=== PATIENT | female | born 1930 | race Caucasian/White ===

== ENCOUNTER 2019-03-05 11:15 | Outpatient (CLI) | payer MEDICARE | END 2019-03-05 11:16 | disposition home or self-care (01) | LOC: DI 11:15 | PROVIDERS: ATTEND Internal Medicine | DX: I34.0 Nonrheumatic mitral (valve) insufficiency (principal); I27.20 Pulmonary hypertension, unspecified | CPT/HCPCS: 93306 ==

== ENCOUNTER 2020-04-30 11:15 | Outpatient (CLI) | payer MEDICARE ==
[2020-04-30 15:32] LABS: BASOPHILS # (AUTO) 0.1 10^3/uL (0.0-0.1); BASOPHILS % (AUTO) 0.7 %; EOSINOPHILS # (AUTO) 0.6 10^3/uL (0.0-0.7); EOSINOPHILS % (AUTO) 5.5 %; HGB - HEMOGLOBIN 12.4 g/dL (12.0-16.0); LYMPHOCYTES # (AUTO) 3.5 10^3/uL (1.5-3.5); LYMPHOCYTES % (AUTO) 33.3 %; MEAN CORPUSCULAR HEMOGLOBIN 25.9 pg (27.0-31.0); MEAN CORPUSCULAR HGB CONC 31.2 g/dL (32.0-36.0); MEAN CORPUSCULAR VOLUME 82.9 fL (81.0-99.0); MEAN PLATELET VOLUME 9.8 fL (7.9-10.8); MONOCYTES # (AUTO) 0.7 10^3/uL (0.0-1.0); MONOCYTES % (AUTO) 6.6 %; NEUTROPHILS # (AUTO) 5.6 10^3/uL (1.5-6.6); NEUTROPHILS % (AUTO) 53.5 %; PLT - PLATELET COUNT 289 10^3/uL (130-450); RED BLOOD COUNT 4.79 10^6/uL (4.20-5.40); RED CELL DISTRIBUTION WIDTH 15.1 % (12.0-15.0); WHITE BLOOD COUNT 10.5 x10^3/uL (4.8-10.8)
[2020-04-30 15:44] LABS: ALBUMIN 4.5 g/dL (3.2-5.5); ALBUMIN/GLOBULIN RATIO 1.9 (1.0-2.2); ALKALINE PHOSPHATASE 47 IU/L (42-121); ALT ALANINE AMINOTRANSFERASE 14 IU/L (10-60); AST ASPARTATE AMINOTRANSFERASE 17 IU/L (10-42); BILIRUBIN,TOTAL 0.7 mg/dL (0.2-1.0); BUN - BLOOD UREA NITROGEN 17 mg/dL (6-20); CALCIUM 9.8 mg/dL (8.5-10.3); CARBON DIOXIDE - CO2 25 mmol/L (21-32); CHLORIDE 101 mmol/L (101-111); CHOL/HDL RATIO 4.9 (<4.4); CHOLESTEROL 235 mg/dL; CREATININE 0.9 mg/dL (0.4-1.0); GLUCOSE 109 mg/dL (70-100); HDL CHOLESTEROL 48 mg/dL; LDL CHOLESTEROL,CALCULATED 153 mg/dL; LDL/HDL RATIO 3.2 (<4.4); SODIUM 134 mmol/L (135-145); TOTAL PROTEIN 6.9 g/dL (6.7-8.2); VLDL CHOLESTEROL 34 mg/dL
[2020-04-30 16:27] LABS: HEMOGLOBIN A1C 0.51 g/dL; HEMOGLOBIN A1C % 5.7 % (4.6-6.2)
== END 2020-04-30 11:16 | disposition home or self-care (01) ==
LOC: LAB.S 11:15
PROVIDERS: ATTEND Nurse Practitioner Family
DX: E78.2 Mixed hyperlipidemia (principal); E03.9 Hypothyroidism, unspecified; I10 Essential (primary) hypertension; R73.01 Impaired fasting glucose
CPT/HCPCS: 36415; 80053; 80061; 83036; 83721; 84443; 85025

== ENCOUNTER 2020-06-22 10:10 | Outpatient (CLI) | payer MEDICARE | END 2020-06-22 10:11 | disposition home or self-care (01) | LOC: DI 10:10 | PROVIDERS: ATTEND Specialist | DX: I34.0 Nonrheumatic mitral (valve) insufficiency (principal); I34.1 Nonrheumatic mitral (valve) prolapse; I51.7 Cardiomegaly | CPT/HCPCS: 93306 ==

== ENCOUNTER 2021-07-07 08:51 | Outpatient (CLI) | payer MEDICARE | END 2021-07-07 08:52 | disposition critical access hospital (66) | LOC: EMS 08:51 | DX: S49.92XA Unspecified injury of left shoulder and upper arm, initial encounter (principal); W01.0XXA Fall on same level from slipping, tripping and stumbling without subsequent striking against object, initial encounter; Y92.002 Bathroom of unspecified non-institutional (private) residence as the place of occurrence of the external cause | CPT/HCPCS: A0425; A0429 ==

== ENCOUNTER 2021-07-07 09:26 | Emergency (ER) | payer MEDICARE ==
[2021-07-07] MEDS ORDERED: KETOROLAC 30 MG/ML VIAL IM STA (09:36)
--- NOTE | 2021-07-07 09:38 | ED Physician Documentation ---
PD HPI UPPER EXT INJURY - Stated complaint Stated Complaint: GLF - Chief complaint Chief Complaint: Ext Problem - History obtained from History obtained from: Patient, EMS - History of Present Illness Location: Left, Arm, Elbow Type of injury: Fall Where injury occurred: Home Timing - onset: Today Timing - duration: Minutes Timing - details: Abrupt onset, Still present Improved by: Rest, Immobilization Worsened by: Moving, Palpating Associated symptoms: Swelling. No: Weakness, Numbness, Discolored Contributing factors: No: Anticoagulated Similar symptoms before: Has not had sx before Recently seen: Not recently seen - Additonal information Additional information: 89-year-old female with a history of mitral valve insufficiency hypertension osteoporosis thyroid disorder was a pacemaker in place was taking shower this morning when she got out of the shower there was some water on the floor and she slipped on the tile landing on her left elbow. Review of Systems Constitutional: denies: Fever Ears: denies: Ear pain Nose: denies: Congestion Throat: denies: Sore throat Respiratory: denies: Cough GI: denies: Vomiting Musculoskeletal: reports: Extremity pain. denies: Neck pain, Back pain Neurologic: denies: Generalized weakness, Focal weakness, Numbness PD PAST MEDICAL HISTORY - Past Medical History Cardiovascular: Hypertension Respiratory: None Endocrine/Autoimmune: HyPOthyroidism GI: None : None HEENT: None Psych: None Musculoskeletal: None Derm: None - Past Surgical History General: Cholecystectomy Ortho: Knee replacement HEENT: Cataracts - Present Medications Home Medications: Ambulatory Orders Medication Instructions Recorded Confirmed Calcium [Calcio Carmen] 500 mg PO 07/30/13 02/11/15 Levothyroxine [Synthroid] 100 mcg PO QDAC 07/30/13 02/11/15 atenoloL [Tenormin] 100 mg PO DAILY 07/30/13 02/11/15 Aspirin [Elizabeth Chewable] 81 mg PO DAILY 02/11/15 02/11/15 C,E,Zinc,Copper 24/Om3/Lut/Dora 1 each PO DAILY 02/11/15 02/11/15 [Ocuvite Softgel] Cholecalciferol (Vitamin D3) 400 unit PO DAILY 02/11/15 02/11/15 [Vitamin D] Cinnamon Bark [Cinnamon] 1,500 mg PO DAILY 02/11/15 02/11/15 Flaxseed [Flaxseed Oil] 1,000 mg PO DAILY 02/11/15 02/11/15 Glucosamine/Methylsulfonylmeth [Sm 1 each PO DAILY 02/11/15 02/11/15 Glucosamine & MSM Tablet] Losartan/Hydrochlorothiazide 1 each ORAL DAILY 02/11/15 02/11/15 [Losartan-Hctz 100-25 mg Tab] amLODIPine [Norvasc] 10 mg PO ONCE 02/11/15 02/11/15 fentaNYL [Fentanyl 25mcg patch] 1 each TD Q3D PRN #4 patch 07/07/21 - Allergies Allergies/Adverse Reactions: Allergies Allergy/AdvReac Type Severity Reaction Status Date / Time ibuprofen Allergy Intermediate Nausea Verified 07/07/21 09:36 morphine Allergy Intermediate Hives Verified 07/07/21 09:36 oxycodone HCl * Allergy Intermediate Nausea Verified 07/07/21 09:36 [From Percocet] codeine [Codeine] AdvReac Intermediate Nausea Verified 07/07/21 09:36 Sulfa (Sulfonamide AdvReac Mild Rash Verified 07/07/21 09:36 Antibiotics) - Social History Does the pt smoke?: No Smoking Status: Never smoker Does the pt drink ETOH?: Yes Does the pt have substance abuse?: No - Immunizations Immunizations are current?: Yes PD ED PE NORMAL - Vitals Vital signs reviewed: Yes (hpyertensive ) - General General: Alert and oriented X 3, No acute distress, Well developed/nourished - HEENT HEENT: Atraumatic, PERRL, EOMI - Neck Neck: Supple, no meningeal sign, No bony TTP - Cardiac Cardiac: RRR, No murmur - Respiratory Respiratory: No respiratory distress, Clear bilaterally - Abdomen Abdomen: Soft, Non tender - Derm Derm: Normal color, Warm and dry, No rash - Extremities Extremities: Other (There is a fracture deformity to the left elbow above the elbow with marked swelling and distortion. There is no pain to palpation of the shoulder the actual elbow joint itself moves the range of motion both supination pronation and flexion extension with pain radiating to the site of the fracture.) - Neuro Neuro: Alert and oriented X 3, predatory animal exterminator 2-12 intact, No motor deficit, No sensory deficit, Normal speech Eye Opening: Spontaneous Motor: Obeys Commands Verbal: Oriented GCS Score: 15 - Psych Psych: Normal mood, Normal affect Results - Vitals Vitals: Vital Signs - 24 hr 07/07/21 07/07/21 07/07/21 09:25 10:00 12:00 Temperature 37 C Heart Rate 71 63 62 Respiratory 16 16 16 Rate Blood Pressure 147/64 H 118/64 106/60 O2 Saturation 99 96 97 Oxygen O2 Source Room air - Rads (name of study) Left elbow Radiology: Prelim report reviewed (Impression: Displaced, shortened, and angulated supracondylar fracture of the left humerus with a butterfly fragment), EMP read indepedently, See rad report Procedures - Splint (location) left elbow Splint applied by: Physician, Tech Type of splint: Fiberglass Other: Patient tolerated well, No complications, Neurovascular intact, Good alignment, Sling provided PD MEDICAL DECISION MAKING - ED course Complexity details: reviewed results, re-evaluated patient, considered differential, d/w patient, d/w sales consultant (Aneta recommends attempt at reduction with gravity, placement in posterior splint and sling and follow up in clinic for casting. ) ED course: 89-year-old female with a slip on wet floor has a distal humerus fracture with displacement. Dr. Cornell is consulted in the case. He reviews films and recommends placement into a posterior splint with traction and manipulation to attempt better position. The fracture does not cause undue pain to the patient and she is able to tolerate traction and manipulation while the splint is being applied after having received toradal. Her daughter calls and is concerned about pain control. The patient notes that she has a hard time with narcotic and prefers tylenol. The daughter indicates she is able to take fentanyl and we have prescribed the lowest dose patch. Departure - Departure Disposition: 01 Home, Self Care Clinical Impression: Fracture of distal humerus Qualifiers: Encounter type: initial encounter Fracture type: closed Fracture morphology: other fracture Fracture alignment: displaced Laterality: left Qualified Code(s): S42.492A - Other displaced fracture of lower end of left humerus, initial encounter for closed fracture Condition: Stable Instructions: ED Fx Elbow Follow-Up: PEDRO BENSON ARNP [Primary Care Provider] - Tyron Burgos MD [Provider Admit Priv/Credential] - Prescriptions: fentaNYL [Fentanyl 25mcg patch] 1 each TD Q3D PRN #4 patch PRN Reason: Pain Comments: A prescription for a fentanyl patch has been transmitted to [facility] in [place]. Discharge Date/Time: 07/07/21 12:30
--- NOTE | 2021-07-07 10:01 | XRAY Report ---
PROCEDURE: Humerus LT INDICATIONS: fall distal swelling tenderness TECHNIQUE: 3 views of the humerus were acquired. COMPARISON: None FINDINGS: Bones: 3 views of the left humerus demonstrate a left displaced, shortened, and angulated supracondyl ar fracture with a butterfly fragment seen medially. Degenerative changes of the left glenohumeral fiona int are present. Soft tissues: No suspicious soft tissue calcifications. Left chest wall pacer is seen. IMPRESSION: Displaced, shortened, and angulated supracondylar fracture of the left humerus with a bu tterfly fragment. Reviewed by: Antony García on 07/07/2021 10:00 AM PDT Approved by: Antony García on 07/07/2021 10:00 AM PDT Station ID: [id number]
[2021-07-07 12:57] VITALS: BP 106/60
== END 2021-07-07 12:30 | disposition home or self-care (01) ==
LOC: EDUNIT# → ED 09:26
DX: S42.412A Displaced simple supracondylar fracture without intercondylar fracture of left humerus, initial encounter for closed fracture (principal); W18.2XXA Fall in (into) shower or empty bathtub, initial encounter; Y93.F1 Activity, caregiving, bathing; Y92.002 Bathroom of unspecified non-institutional (private) residence as the place of occurrence of the external cause; I10 Essential (primary) hypertension
CPT/HCPCS: 29105

== ENCOUNTER 2021-07-14 10:22 | Outpatient (CLI) | payer MEDICARE ==
--- NOTE | 2021-07-14 15:23 | XRAY Report ---
PROCEDURE: Elbow 2 View LT INDICATIONS: S/P CAST TECHNIQUE: 2 views of the elbow were acquired. COMPARISON: X-ray left humerus, 2 views, 07/07/2021. X-ray left elbow, 2 views, 07/14/2021. FINDINGS: Bones: Comminuted fracture of the still humeral metaphysis with displacement. Alignment is improved a lthough significant displacement persists. No suspicious bony lesions. Soft tissues: No elbow joint effusion. No suspicious soft tissue calcifications. IMPRESSION: 1. After closed reduction of comminuted distal humeral fracture, there is improved alignment but sign ificant displacement persists. Reviewed by: Haja Horn MD on 07/14/2021 3:22 PM PDT Approved by: Haja Horn MD on 07/14/2021 3:22 PM PDT Station ID: [id number]
--- NOTE | 2021-07-14 15:42 | XRAY Report ---
PROCEDURE: Elbow 2 View LT INDICATIONS: PAIN IN LEFT ELBOW TECHNIQUE: 2 views of the elbow were acquired. COMPARISON: Humeral radiograph dated 07/07/2021 FINDINGS: Bones: Again noted is comminuted distal humeral shaft fracture with anterior and medial displacement at fracture site and up to 6.2 cm overlapping. No elbow dislocation is seen. No suspicious bony lesio ns. Soft tissues: Large joint effusion is noted. No suspicious soft tissue calcifications. IMPRESSION: Comminuted and displaced distal humeral shaft fracture now significantly changed from prior study. Reviewed by: Hernán Lyons MD on 07/14/2021 3:40 PM PDT Approved by: Hernán Lyons MD on 07/14/2021 3:40 PM PDT Station ID: [id number]
== END 2021-07-14 23:59 | disposition home or self-care (01) ==
LOC: DI.N 10:22
PROVIDERS: ATTEND Orthopaedic Surgery
DX: S42.352A Displaced comminuted fracture of shaft of humerus, left arm, initial encounter for closed fracture (principal)

== ENCOUNTER 2021-07-25 01:10 | Outpatient (CLI) | payer MEDICARE | END 2021-07-25 01:11 | disposition critical access hospital (66) | LOC: EMS 01:10 | DX: R07.89 Other chest pain (principal); R06.02 Shortness of breath | CPT/HCPCS: A0425; A0427 ==

== ENCOUNTER 2021-07-25 01:38 | Emergency (ER) | payer MEDICARE ==
--- NOTE | 2021-07-25 01:54 | ED Physician Documentation ---
PD HPI DYSPNEA - Stated complaint Stated Complaint: SOA, CHEST PX - Chief complaint Chief Complaint: Resp - History obtained from History obtained from: Patient - History of Present Illness Timing - onset: Today Timing - onset during: Rest Timing - duration: Minutes Timing - details: Abrupt onset, Still present (improved) Inciting event(s): Other (has recent fracture of the left distal humerus) Improved by: O2, BiPAP / CPAP, Nitro Worsened by: Exertion, Laying flat Associated symptoms: Chest pain / discomfort. No: Fever, Cough, Hemoptysis, Wheezing, Palpitations, Diaphoresis, Bilateral edema, Unilateral edema Similar symptoms before: Has not had sx before Recently seen: Emergency Dept - Additional information Additional information: 89-year-old female with demand pacemaker in place has developed acute shortness of breath this evening while watching television. She was attended to by medics who found the patient to be in extremis and with crackles in her lungs. She had elevated blood pressure she was given nitro and placed on CPAP in route to the hospital she is improved. She was responsive to positioning with lowering of her legs helping and raising her head. Medics were concerned about the need to intubate the patient in the field. She has recently been in to the ED for a fall on a wet floor. She has an unhealed fracture in her left elbow and is in a posterior splint and sling. She has been in to see her carbon electrodes supervisor to be cleared for surgery and her amlodipine has been stopped. Review of Systems Constitutional: denies: Fever Eyes: denies: Decreased vision Ears: denies: Ear pain Nose: denies: Congestion Throat: denies: Sore throat Cardiac: denies: Chest pain / pressure, Palpitations, Pedal edema, Calf pain Respiratory: reports: Dyspnea. denies: Cough, Hemoptysis, Wheezing GI: denies: Abdominal Pain, Nausea, Vomiting : denies: Dysuria, Frequency Skin: denies: Rash Musculoskeletal: reports: Extremity pain. denies: Neck pain, Back pain Neurologic: denies: Generalized weakness, Focal weakness, Numbness PD PAST MEDICAL HISTORY - Past Medical History Cardiovascular: Hypertension Respiratory: None Endocrine/Autoimmune: HyPOthyroidism GI: None : None HEENT: None Psych: None Musculoskeletal: None Derm: None - Past Surgical History Past Surgical History: Yes General: Cholecystectomy Ortho: Knee replacement Cardiovascular: Pacemaker HEENT: Cataracts - Present Medications Home Medications: Ambulatory Orders Medication Instructions Recorded Confirmed Calcium [Calcio Carmen] 500 mg PO 07/30/13 02/11/15 Levothyroxine [Synthroid] 100 mcg PO QDAC 07/30/13 02/11/15 atenoloL [Tenormin] 100 mg PO DAILY 07/30/13 02/11/15 Aspirin [Elizabeth Chewable] 81 mg PO DAILY 02/11/15 02/11/15 C,E,Zinc,Copper 24/Om3/Lut/Dora 1 each PO DAILY 02/11/15 02/11/15 [Ocuvite Softgel] Cholecalciferol (Vitamin D3) 400 unit PO DAILY 02/11/15 02/11/15 [Vitamin D] Cinnamon Bark [Cinnamon] 1,500 mg PO DAILY 02/11/15 02/11/15 Flaxseed [Flaxseed Oil] 1,000 mg PO DAILY 02/11/15 02/11/15 Glucosamine/Methylsulfonylmeth [Sm 1 each PO DAILY 02/11/15 02/11/15 Glucosamine & MSM Tablet] Losartan/Hydrochlorothiazide 1 each ORAL DAILY 02/11/15 02/11/15 [Losartan-Hctz 100-25 mg Tab] amLODIPine [Norvasc] 10 mg PO ONCE 02/11/15 02/11/15 fentaNYL [Fentanyl 25mcg patch] 1 each TD Q3D PRN #4 patch 07/07/21 - Allergies Allergies/Adverse Reactions: Allergies Allergy/AdvReac Type Severity Reaction Status Date / Time ibuprofen Allergy Intermediate Nausea Verified 07/25/21 01:48 morphine Allergy Intermediate Hives Verified 07/25/21 01:48 oxycodone HCl * Allergy Intermediate Nausea Verified 07/25/21 01:48 [From Percocet] codeine [Codeine] AdvReac Intermediate Nausea Verified 07/25/21 01:48 Sulfa (Sulfonamide AdvReac Mild Rash Verified 07/25/21 01:48 Antibiotics) - Social History Does the pt smoke?: No Smoking Status: Never smoker Does the pt drink ETOH?: Yes Does the pt have substance abuse?: No - Immunizations Immunizations are current?: Yes PD ED PE NORMAL - Vitals Vital signs reviewed: Yes (tachpneic) - General General: Alert and oriented X 3, Well developed/nourished, Other (CPAP in place not stuggling on arrival. ) - HEENT HEENT: Atraumatic, PERRL, EOMI - Neck Neck: Supple, no meningeal sign, No bony TTP - Cardiac Cardiac: RRR - Respiratory Respiratory: No respiratory distress, Other (diminshed breath sounds ) - Abdomen Abdomen: Soft, Non tender - Back Back: No CVA TTP, No spinal TTP - Derm Derm: Normal color, Warm and dry, No rash - Extremities Extremities: No deformity, No edema - Neuro Neuro: Alert and oriented X 3, accounting professional 2-12 intact, No motor deficit, No sensory deficit, Normal speech Eye Opening: Spontaneous Motor: Obeys Commands Verbal: Oriented GCS Score: 15 - Psych Psych: Normal mood, Normal affect Results - Vitals Vitals: Vital Signs - 24 hr 07/25/21 07/25/21 07/25/21 01:38 01:46 02:23 Temperature 36.7 C Heart Rate 98 89 87 Respiratory 26 H 22 22 Rate Blood Pressure 126/72 126/72 118/70 O2 Saturation 100 99 94 07/25/21 07/25/21 07/25/21 02:30 03:00 03:30 Temperature Heart Rate 80 75 78 Respiratory 25 H 18 22 Rate Blood Pressure 105/56 L 107/62 119/65 O2 Saturation 98 94 94 07/25/21 07/25/21 07/25/21 04:00 04:30 05:30 Temperature Heart Rate 86 75 84 Respiratory 22 19 21 Rate Blood Pressure 124/79 125/81 H 124/79 O2 Saturation 96 93 94 07/25/21 06:00 Temperature 36.8 C Heart Rate 85 Respiratory 24 Rate Blood Pressure 109/67 O2 Saturation 96 Oxygen O2 Source Room air - EKG (time done) 0145 Rate: Rate (enter#) (92) Rhythm: NSR Intervals: Prolonged MD, Prolonged QT Ischemia: Normal ST segments Other comments: Other comments (There is a lead placement error in V2 ) Compare to prior EKG: Old EKG unavailable Computer interpretation: Agree with computer 0546 Rate: Rate (enter#) (83) Intervals: Prolonged MD (borderline), Prolonged QT (borderline ) QRS: LVH Compare to prior EKG: Changed from prior EKG (SPT earlier today rate is decreased and prolongation of MD and QT are less. ) Computer interpretation: Agree with computer - Labs Labs: Laboratory Tests 07/25/21 07/25/21 07/25/21 02:09 02:09 02:09 WBC 14.3 H RBC 3.85 L Hgb 10.2 L Hct 33.1 L MCV 86.0 MCH 26.5 L MCHC 30.8 L RDW 16.6 H Plt Count 356 MPV 9.1 Neut # (Auto) 11.7 H Lymph # (Auto) 1.5 [place] # (Auto) 0.8 Eos # (Auto) 0.2 Baso # (Auto) 0.1 Absolute Nucleated RBC 0.00 Nucleated RBC % 0.0 Sodium 132 L Potassium 3.9 Chloride 99 L Carbon Dioxide 19 L Anion Gap 14.0 H BUN 18 Creatinine 0.9 Estimated GFR (MDRD) 59 L Glucose 214 H Lactic Acid Calcium 9.2 Total Bilirubin 0.9 AST 34 ALT 29 Alkaline Phosphatase 69 Troponin I High Sens 216.5 H* B-Natriuretic Peptide Total Protein 6.6 L Albumin 4.0 Globulin 2.6 Albumin/Globulin Ratio 1.5 Lipase 27 Nasal Adenovirus (PCR) Nasal B. parapertussis DNA (PCR) Nasal Coronavir 229E PCR Nasal Coronavir HKU1 PCR Nasal Coronavir NL63 PCR Nasal Coronavir OC43 PCR Nasal Enterovir/Rhinovir PCR Nasal Influenza B PCR Nasal Influenza A PCR Nasal Parainfluen 1 PCR Nasal Parainfluen 2 PCR Nasal Parainfluen 3 PCR Nasal Parainfluen 4 PCR Nasal RSV (PCR) Nasal B.pertussis DNA PCR Nasal C.pneumoniae (PCR) Ben Human Metapneumo PCR Nasal M.pneumoniae (PCR) Nasal SARS-CoV-2 (PCR) 07/25/21 07/25/21 07/25/21 02:09 02:09 03:55 WBC RBC Hgb Hct MCV MCH MCHC RDW Plt Count MPV Neut # (Auto) Lymph # (Auto) [place] # (Auto) Eos # (Auto) Baso # (Auto) Absolute Nucleated RBC Nucleated RBC % Sodium Potassium Chloride Carbon Dioxide Anion Gap BUN Creatinine Estimated GFR (MDRD) Glucose Lactic Acid 2.1 Calcium Total Bilirubin AST ALT Alkaline Phosphatase Troponin I High Sens B-Natriuretic Peptide 1085 H Total Protein Albumin Globulin Albumin/Globulin Ratio Lipase Nasal Adenovirus (PCR) NOT DETECTED Nasal B. parapertussis DNA (PCR) NOT DETECTED Nasal Coronavir 229E PCR NOT DETECTED Nasal Coronavir HKU1 PCR NOT DETECTED Nasal Coronavir NL63 PCR NOT DETECTED Nasal Coronavir OC43 PCR NOT DETECTED Nasal Enterovir/Rhinovir PCR NOT DETECTED Nasal Influenza B PCR NOT DETECTED Nasal Influenza A PCR NOT DETECTED Nasal Parainfluen 1 PCR NOT DETECTED Nasal Parainfluen 2 PCR NOT DETECTED Nasal Parainfluen 3 PCR NOT DETECTED Nasal Parainfluen 4 PCR NOT DETECTED Nasal RSV (PCR) NOT DETECTED Nasal B.pertussis DNA PCR NOT DETECTED Nasal C.pneumoniae (PCR) NOT DETECTED Ben Human Metapneumo PCR NOT DETECTED Nasal M.pneumoniae (PCR) NOT DETECTED Nasal SARS-CoV-2 (PCR) NOT DETECTED 07/25/21 03:59 WBC RBC Hgb Hct MCV MCH MCHC RDW Plt Count MPV Neut # (Auto) Lymph # (Auto) [place] # (Auto) Eos # (Auto) Baso # (Auto) Absolute Nucleated RBC Nucleated RBC % Sodium Potassium Chloride Carbon Dioxide Anion Gap BUN Creatinine Estimated GFR (MDRD) Glucose Lactic Acid Calcium Total Bilirubin AST ALT Alkaline Phosphatase Troponin I High Sens 1613.9 H* B-Natriuretic Peptide Total Protein Albumin Globulin Albumin/Globulin Ratio Lipase Nasal Adenovirus (PCR) Nasal B. parapertussis DNA (PCR) Nasal Coronavir 229E PCR Nasal Coronavir HKU1 PCR Nasal Coronavir NL63 PCR Nasal Coronavir OC43 PCR Nasal Enterovir/Rhinovir PCR Nasal Influenza B PCR Nasal Influenza A PCR Nasal Parainfluen 1 PCR Nasal Parainfluen 2 PCR Nasal Parainfluen 3 PCR Nasal Parainfluen 4 PCR Nasal RSV (PCR) Nasal B.pertussis DNA PCR Nasal C.pneumoniae (PCR) Ben Human Metapneumo PCR Nasal M.pneumoniae (PCR) Nasal SARS-CoV-2 (PCR) - Rads (name of study) chest Radiology: Prelim report reviewed (Impression: 1. New patchy infiltrates compared with previous study. 2. Other incidental findings as above.), EMP read indepedently, See rad report Procedures - IVC sono (time) 0143 Bedside IVC sono: IVC measures (cm) (2.03), IVC collapsed c insp (cm) (0.88), Eu volemia PD MEDICAL DECISION MAKING - ED course Complexity details: reviewed old records, reviewed results, re-evaluated patient, considered differential, d/w patient, d/w family, d/w analytical consultant (Shemar audio production engineer for [employer] recommends transfer for further evaluation of NSTEMI) ED course: 89-year-old female presents to the emergency department with acute flash pulmonary edema that was improved with use of CPAP and nitroglycerin. She has had a recent visit to her carbon electrodes supervisor in preparation for surgery and her amlodipine was discontinued. She had a blood pressure of 113/60. Her blood pressure in the field today was 159/96 and her O2 sat was 76% . She improved dramatically and we have been able to discontinue the CPAP and she has continued to improve. Her initial trop was elevated in the 200 range and her IVC was collapsing appropriately shortly after arrival. lasix was not indicated. She had further elevation in her trop to the 1600 range and she has been diagnosed with NSTEMI. I consulted cardiology at [place] and talked to Dr. Staton who recommended transfer. The patient was questioned about her willingness to participate in aggressive care and she indicates that she has had stents previously and would go through this again if it was recommended. She is started on heparin drip and she is on a waiting list at [facility] and [facility]. At shift change her care is turned over to Dr. Stuart with expectation of transfer to a center capable of evaluation and treatment. Departure - Departure Disposition: 02 Transfer Acute Care Hosp Clinical Impression: NSTEMI (non-ST elevated myocardial infarction), Flash pulmonary edema Condition: Stable
[2021-07-25 02:14] LABS: BASOPHILS # (AUTO) 0.1 10^3/uL (0.0-0.1); BASOPHILS % (AUTO) 0.4 %; EOSINOPHILS # (AUTO) 0.2 10^3/uL (0.0-0.7); EOSINOPHILS % (AUTO) 1.3 %; HCT - HEMATOCRIT 33.1 % (37.0-47.0); HGB - HEMOGLOBIN 10.2 g/dL (12.0-16.0); LYMPHOCYTES # (AUTO) 1.5 10^3/uL (1.5-3.5); LYMPHOCYTES % (AUTO) 10.4 %; MEAN CORPUSCULAR HEMOGLOBIN 26.5 pg (27.0-31.0); MEAN CORPUSCULAR HGB CONC 30.8 g/dL (32.0-36.0); MEAN PLATELET VOLUME 9.1 fL (7.9-10.8); MONOCYTES # (AUTO) 0.8 10^3/uL (0.0-1.0); MONOCYTES % (AUTO) 5.4 %; NEUTROPHILS # (AUTO) 11.7 10^3/uL (1.5-6.6); NEUTROPHILS % (AUTO) 81.9 %; PLT - PLATELET COUNT 356 10^3/uL (130-450); RED BLOOD COUNT 3.85 10^6/uL (4.20-5.40); RED CELL DISTRIBUTION WIDTH 16.6 % (12.0-15.0); WHITE BLOOD COUNT 14.3 x10^3/uL (4.8-10.8)
[2021-07-25 02:27] LABS: ALBUMIN/GLOBULIN RATIO 1.5 (1.0-2.2); BILIRUBIN,TOTAL 0.9 mg/dL (0.2-1.0); CALCIUM 9.2 mg/dL (8.5-10.3); CREATININE 0.9 mg/dL (0.4-1.0); POTASSIUM 3.9 mmol/L (3.5-5.0); TOTAL PROTEIN 6.6 g/dL (6.7-8.2)
[2021-07-25 05:02] LABS: B. PARAPERTUSSIS- RESP PCR PAN NOT DETECTED; B. PERTUSSIS- RESP PCR PANEL NOT DETECTED; C. PNEUMONIAE- RESP PCR PANEL NOT DETECTED; CORONAVIRUS 229E-RESP PCR NOT DETECTED; CORONAVIRUS HKU1-RESP PCR NOT DETECTED; CORONAVIRUS NL63-RESP PCR NOT DETECTED; CORONAVIRUS OC43-RESP PCR NOT DETECTED; HUMAN METAPNEUMOVIRUS NOT DETECTED; INFLUENZA A- RESP PCR PANEL NOT DETECTED; INFLUENZA B - RESP PCR PANEL NOT DETECTED; M. PNEUMONIAE- RESP PCR PANEL NOT DETECTED; PARAINFLUENZA VIRUS 1 NOT DETECTED; PARAINFLUENZA VIRUS 2 NOT DETECTED; PARAINFLUENZA VIRUS 3 NOT DETECTED; PARAINFLUENZA VIRUS 4 NOT DETECTED; RHINOVIRUS/ENTEROVIRUS NOT DETECTED; RSV- RESP PCR PANEL NOT DETECTED; SARS-CoV-2 -RESP PCR PANEL NOT DETECTED
[2021-07-25] MEDS ORDERED: HEPARIN 25000UNITS/500ML (D5W) 25,000 UNIT/500 ML BAG IV SCH (06:00)
--- NOTE | 2021-07-25 09:11 | XRAY Report ---
PROCEDURE: Chest 1 View X-Ray INDICATIONS: chest pain TECHNIQUE: One view of the chest was acquired. COMPARISON: CT chest 02/11/2015 FINDINGS: Surgical changes and devices: Pacemaker. Lungs and pleura: Patchy bilateral pulmonary opacities are present with blunting of the costophrenic angles. Mediastinum: Mediastinal contours appear normal. Heart size is enlarged. Bones and chest wall: No suspicious bony lesions. Overlying soft tissues appear unremarkable. IMPRESSION: Patchy bilateral pulmonary opacities most consistent with pneumonia. Trace effusions are present. The above findings are concordant with preliminary report. Reviewed by: Ashely Melo MD on 07/25/2021 9:10 AM PDT Approved by: Ashely Melo MD on 07/25/2021 9:10 AM PDT Station ID: [id number]
[2021-07-25 11:52] LABS: BILIRUBIN,URINE NEGATIVE (NEGATIVE); GLUCOSE, URINE (UA) NEGATIVE (NEGATIVE); KETONES,URINE (UA) NEGATIVE (NEGATIVE); LEUKOCYTE ESTERASE, URINE SMALL (NEGATIVE); NITRITE,URINE NEGATIVE (NEGATIVE); OCCULT BLOOD,URINE SMALL (NEGATIVE); PROTEIN,URINE NEGATIVE (NEGATIVE); UROBILINOGEN,URINE 0.2 (NORMAL) E.U./dL (NORMAL)
[2021-07-25] MEDS ORDERED: LEVOTHYROXINE 100 MCG TABLET PO STA (11:56)
[2021-07-25] MEDS ORDERED: ISOSORBIDE MONONITRATE ER 30 MG TABLET PO STA (11:58)
[2021-07-25 12:05] LABS: CLARITY,URINE CLEAR (CLEAR)
[2021-07-25 12:06] LABS: RBC,URINE 0-5 /HPF (0-5); SQUAMOUS EPITHELIAL CELL,UR RARE Squamous (<= Few)
[2021-07-25 12:08] LABS: BACTERIA,URINE None Seen /HPF (None Seen)
[2021-07-25 18:54] LABS: ALBUMIN 3.5 g/dL (3.2-5.5); ALBUMIN/GLOBULIN RATIO 1.5 (1.0-2.2); BILIRUBIN,TOTAL 0.9 mg/dL (0.2-1.0); CALCIUM 8.6 mg/dL (8.5-10.3); CREATININE 0.7 mg/dL (0.4-1.0); TOTAL PROTEIN 5.9 g/dL (6.7-8.2)
[2021-07-25 21:57] VITALS: BP 121/65
== END 2021-07-25 21:57 | disposition short-term general hospital (02) ==
LOC: SUPCPDRO 01:38 → ED 01:38
DX: J81.0 Acute pulmonary edema (principal); I21.4 Non-ST elevation (NSTEMI) myocardial infarction; I34.0 Nonrheumatic mitral (valve) insufficiency; S42.402D Unspecified fracture of lower end of left humerus, subsequent encounter for fracture with routine healing; W01.0XXD Fall on same level from slipping, tripping and stumbling without subsequent striking against object, subsequent encounter; Z20.822 Contact with and (suspected) exposure to COVID-19
CPT/HCPCS: 36415; 71045; 80053; 81001; 83605; 83690; 83880; 84484; 85025; 85730; 87086; 87631; 93005; 96365; 96366; 96376; 99285; A9270; 0202U; 81003; 85520

== ENCOUNTER 2021-07-25 21:57 | Outpatient (CLI) | payer MEDICARE | END 2021-07-25 21:58 | disposition short-term general hospital (02) | LOC: EMS 21:57 | PROVIDERS: ATTEND Emergency Medicine | DX: I21.4 Non-ST elevation (NSTEMI) myocardial infarction (principal); I34.0 Nonrheumatic mitral (valve) insufficiency | CPT/HCPCS: A0425; A0426 ==

== ENCOUNTER 2021-08-13 14:41 | Outpatient (CLI) | payer MEDICARE ==
--- NOTE | 2021-08-13 16:28 | Ultrasound Report ---
PROCEDURE: Duplex Ext Veins Right INDICATIONS: VENOUS THROMBOSIS the patient gives a history of known prior right popliteal vein throm bosis. TECHNIQUE: Real-time imaging, as well as color and pulse Doppler interrogation, were performed of the lower extr emity deep veins from the inguinal ligament to the popliteal fossa. COMPARISON: No prior images or reports are available at the time of this dictation. FINDINGS: Nonocclusive the venous anastomosis can be seen involving the popliteal vein. No additiona l right lower extremity deep venous thrombosis can be seen. 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 Note: Attempts were made to contact the primary care provider at the time of this study, but she was unavailable. Reviewed by: Yakov Seymour MD on 08/13/2021 3:26 PM DAGOBERTO Approved by: Yakov Seymour MD on 08/13/2021 3:26 PM DAGOBERTO Station ID: [id number]
== END 2021-08-13 14:42 | disposition home or self-care (01) ==
LOC: DI 14:41
PROVIDERS: ATTEND Physician Assistant
DX: I82.531 Chronic embolism and thrombosis of right popliteal vein (principal)

== ENCOUNTER 2021-08-19 01:41 | Outpatient (CLI) | payer MEDICARE | END 2021-08-19 01:42 | disposition critical access hospital (66) | LOC: EMS 01:41 | DX: R06.02 Shortness of breath (principal) | CPT/HCPCS: A0425; A0427 ==

== ENCOUNTER 2021-08-19 02:19 | Inpatient (IN) | payer MEDICARE ==
--- NOTE | 2021-08-19 03:09 | ED Physician Documentation ---
History of Present Illness - Stated complaint Stated Complaint: SOA - Chief complaint Chief Complaint: Resp - History obtained from History obtained from: Patient - Additonal information Additional information: 89yF with pmh chf/severe mitral insufficiency, s/p hospitalization at [facility] recently for 1 week p/w acute shortness of breath since evening timeyesterday. daughter is MARINE ELECTRONICS REPAIRER and has been treating her with SL nitro and lasix and called ems. patient feeling better but unable to speak 2/2 bipap. EMS reports patient is DNR/DNI. Review of Systems Unable to obtain: Other (unable to obtain 2/2 patient acuity) PD PAST MEDICAL HISTORY - Past Medical History Cardiovascular: Hypertension Respiratory: None Endocrine/Autoimmune: HyPOthyroidism GI: None : None HEENT: None Psych: None Musculoskeletal: None Derm: None - Past Surgical History Past Surgical History: Yes General: Cholecystectomy Ortho: Knee replacement Cardiovascular: Pacemaker HEENT: Cataracts - Present Medications Home Medications: Ambulatory Orders Medication Instructions Recorded Confirmed Calcium [Calcio [place]] 500 mg PO DAILY 07/30/13 07/25/21 Levothyroxine [Synthroid] 100 mcg PO QDAC 07/30/13 07/25/21 atenoloL [Tenormin] 100 mg PO DAILY 07/30/13 07/25/21 Aspirin [Elizabeth Chewable] 81 mg PO DAILY 02/11/15 07/25/21 C,E,Zinc,Copper 24/Om3/Lut/Dora 1 each PO DAILY 02/11/15 07/25/21 [Ocuvite Softgel] Cholecalciferol (Vitamin D3) 400 unit PO DAILY 02/11/15 07/25/21 [Vitamin D] Cinnamon Bark [Cinnamon] 1,500 mg PO DAILY 02/11/15 07/25/21 Flaxseed [Flaxseed Oil] 1,000 mg PO DAILY 02/11/15 07/25/21 Glucosamine/Methylsulfonylmeth [Sm 1 each PO DAILY 02/11/15 07/25/21 Glucosamine & MSM Tablet] amLODIPine [Norvasc] 10 mg PO ONCE 02/11/15 07/25/21 fentaNYL [Fentanyl 25mcg patch] 1 each TD Q3D PRN #4 patch 07/07/21 07/25/21 C,E,Zinc,Copper 11/Zvmbs6k/Lut 07/25/21 [Ocuvite Adult 50 Plus Softgel] Isosorbide Dinitrate 1 tab PO DAILY 07/25/21 07/25/21 - Allergies Allergies/Adverse Reactions: Allergies Allergy/AdvReac Type Severity Reaction Status Date / Time ibuprofen Allergy Intermediate Nausea Verified 07/25/21 01:48 morphine Allergy Intermediate Hives Verified 07/25/21 01:48 oxycodone HCl * Allergy Intermediate Nausea Verified 07/25/21 01:48 [From Percocet] losartan Allergy Anaphylaxis Verified 07/25/21 11:53 codeine [Codeine] AdvReac Intermediate Nausea Verified 07/25/21 01:48 Sulfa (Sulfonamide AdvReac Mild Rash Verified 07/25/21 01:48 Antibiotics) - Social History Does the pt smoke?: No Smoking Status: Never smoker Does the pt drink ETOH?: Yes Does the pt have substance abuse?: No - Immunizations Immunizations are current?: Yes PD ED PE NORMAL - Vitals Vital signs reviewed: Yes - General General: Other (mild respiratory distress) - HEENT HEENT: Atraumatic, PERRL, EOMI, Moist mucous membranes, Pharynx benign - Neck Neck: Supple, no meningeal sign - Cardiac Cardiac: RRR - Respiratory Respiratory: Other (BL rales, crackles) - Abdomen Abdomen: Non tender, Non distended - Back Back: No spinal TTP - Derm Derm: Normal color, Warm and dry - Extremities Extremities: No deformity, Other (BL LE edema) - Neuro Neuro: No motor deficit, No sensory deficit - Psych Psych: Normal mood, Normal affect Results - Vitals Vitals: Vital Signs - 24 hr 08/19/21 08/19/21 08/19/21 02:24 02:53 03:18 Temperature 37.0 C Heart Rate 86 71 82 Respiratory 26 H 19 27 H Rate Blood Pressure 127/67 116/56 L 115/61 O2 Saturation 99 99 98 08/19/21 08/19/21 08/19/21 03:20 04:05 04:20 Temperature Heart Rate 83 73 Respiratory 22 20 21 Rate Blood Pressure 107/65 116/56 L O2 Saturation 98 95 98 Oxygen O2 Source Nasal cannula Oxygen Flow Rate 2 - Labs Labs: Laboratory Tests 08/19/21 08/19/21 08/19/21 03:04 04:00 04:00 WBC 9.3 RBC 3.05 L Hgb 8.1 L Hct 26.4 L MCV 86.6 MCH 26.6 L MCHC 30.7 L RDW 17.8 H Plt Count 321 MPV 9.5 Neut # (Auto) 7.5 H Lymph # (Auto) 1.0 L Walker # (Auto) 0.7 Eos # (Auto) 0.1 Baso # (Auto) 0.0 Absolute Nucleated RBC 0.00 Nucleated RBC % 0.0 Sodium 133 L Potassium 3.9 Chloride 99 L Carbon Dioxide 22 Anion Gap 12.0 BUN 13 Creatinine 0.8 Estimated GFR (MDRD) 68 L Glucose 137 H Calcium 8.7 Iron TIBC % Saturation Transferrin Ferritin Total Bilirubin 0.7 AST 26 ALT 27 Alkaline Phosphatase 66 Troponin I High Sens B-Natriuretic Peptide Total Protein 5.8 L Albumin 3.6 Globulin 2.2 Albumin/Globulin Ratio 1.6 Lipase 29 Nasal Adenovirus (PCR) NOT DETECTED Nasal B. parapertussis DNA (PCR) NOT DETECTED Nasal Coronavir 229E PCR NOT DETECTED Nasal Coronavir HKU1 PCR NOT DETECTED Nasal Coronavir NL63 PCR NOT DETECTED Nasal Coronavir OC43 PCR NOT DETECTED Nasal Enterovir/Rhinovir PCR NOT DETECTED Nasal Influenza B PCR NOT DETECTED Nasal Influenza A PCR NOT DETECTED Nasal Parainfluen 1 PCR NOT DETECTED Nasal Parainfluen 2 PCR NOT DETECTED Nasal Parainfluen 3 PCR NOT DETECTED Nasal Parainfluen 4 PCR NOT DETECTED Nasal RSV (PCR) NOT DETECTED Nasal B.pertussis DNA PCR NOT DETECTED Nasal C.pneumoniae (PCR) NOT DETECTED Ben Human Metapneumo PCR NOT DETECTED Nasal M.pneumoniae (PCR) NOT DETECTED Nasal SARS-CoV-2 (PCR) NOT DETECTED 08/19/21 08/19/21 08/19/21 04:00 04:00 04:00 WBC RBC Hgb Hct MCV MCH MCHC RDW Plt Count MPV Neut # (Auto) Lymph # (Auto) Walker # (Auto) Eos # (Auto) Baso # (Auto) Absolute Nucleated RBC Nucleated RBC % Sodium Potassium Chloride Carbon Dioxide Anion Gap BUN Creatinine Estimated GFR (MDRD) Glucose Calcium Iron 26 L TIBC 333 % Saturation 8 L Transferrin 238 Ferritin Total Bilirubin AST ALT Alkaline Phosphatase Troponin I High Sens 397.2 H* B-Natriuretic Peptide 3338 H Total Protein Albumin Globulin Albumin/Globulin Ratio Lipase Nasal Adenovirus (PCR) Nasal B. parapertussis DNA (PCR) Nasal Coronavir 229E PCR Nasal Coronavir HKU1 PCR Nasal Coronavir NL63 PCR Nasal Coronavir OC43 PCR Nasal Enterovir/Rhinovir PCR Nasal Influenza B PCR Nasal Influenza A PCR Nasal Parainfluen 1 PCR Nasal Parainfluen 2 PCR Nasal Parainfluen 3 PCR Nasal Parainfluen 4 PCR Nasal RSV (PCR) Nasal B.pertussis DNA PCR Nasal C.pneumoniae (PCR) Ben Human Metapneumo PCR Nasal M.pneumoniae (PCR) Nasal SARS-CoV-2 (PCR) 08/19/21 04:00 WBC RBC Hgb Hct MCV MCH MCHC RDW Plt Count MPV Neut # (Auto) Lymph # (Auto) Walker # (Auto) Eos # (Auto) Baso # (Auto) Absolute Nucleated RBC Nucleated RBC % Sodium Potassium Chloride Carbon Dioxide Anion Gap BUN Creatinine Estimated GFR (MDRD) Glucose Calcium Iron TIBC % Saturation Transferrin Ferritin 117.0 Total Bilirubin AST ALT Alkaline Phosphatase Troponin I High Sens B-Natriuretic Peptide Total Protein Albumin Globulin Albumin/Globulin Ratio Lipase Nasal Adenovirus (PCR) Nasal B. parapertussis DNA (PCR) Nasal Coronavir 229E PCR Nasal Coronavir HKU1 PCR Nasal Coronavir NL63 PCR Nasal Coronavir OC43 PCR Nasal Enterovir/Rhinovir PCR Nasal Influenza B PCR Nasal Influenza A PCR Nasal Parainfluen 1 PCR Nasal Parainfluen 2 PCR Nasal Parainfluen 3 PCR Nasal Parainfluen 4 PCR Nasal RSV (PCR) Nasal B.pertussis DNA PCR Nasal C.pneumoniae (PCR) Ben Human Metapneumo PCR Nasal M.pneumoniae (PCR) Nasal SARS-CoV-2 (PCR) PD MEDICAL DECISION MAKING - ED course ED course: Patient was breathing heavily, daughter gave her 40mg PO lasix. Patient took one SL nitro / hour X 3. then daughter gave her 2 more. BP was high for her 150/85, she was short of breath. daughter called EMS. Patient is DNR/DNI, was recently admitted at [facility] (admitting supervisor Dr. Mcgarry, [place]). admitting supervisor Dr. Joyner at [facility]. Daughter would like patient to have full interventions including bloodwork, medications, admission. d/w Dr. Zafar for admission who requested we contact cardiology to confirm they are not able to take her for mitral clip. [facility] transfer center confirms there are 60 patients on waitlist and no beds available at present. Will admit here for CHF exacerbation management and diuresis. Patient improving and able to transition to nasal cannula from bipap. d/w Dr. Casper, admitting supervisor at [facility] who states if no beds are available at [facility] we should admit [facility] for now and re-consult inpatient. d/w Dr. Malave, admitting supervisor for [place] who recommends patient to be medically optimized at [facility], involving admitting supervisor at [facility] for coordination of care. d/w Dr. Lex Keen with [facility] who confirms he was told there would be a wait of at least 48 to 72 hours prior to considering patients at [facility] again. Recom mending against mitral clip from july 2021. Patient has previously said she would not want to consider mitral clip at this time to primary admitting supervisor at [facility] Dr. Joyner. He plans to fax over report to us. Departure - Departure Disposition: 66 [facility] DC/Xfer Clinical Impression: Acute exacerbation of CHF (congestive heart failure) Condition: Stable Discharge Date/Time: 08/19/21 06:15
[2021-08-19] MEDS ORDERED: FUROSEMIDE 20 MG/2 ML VIAL IVP STA (03:41)
[2021-08-19 04:12] LABS: B. PARAPERTUSSIS- RESP PCR PAN NOT DETECTED; B. PERTUSSIS- RESP PCR PANEL NOT DETECTED; C. PNEUMONIAE- RESP PCR PANEL NOT DETECTED; CORONAVIRUS 229E-RESP PCR NOT DETECTED; CORONAVIRUS HKU1-RESP PCR NOT DETECTED; CORONAVIRUS NL63-RESP PCR NOT DETECTED; CORONAVIRUS OC43-RESP PCR NOT DETECTED; HUMAN METAPNEUMOVIRUS NOT DETECTED; INFLUENZA A- RESP PCR PANEL NOT DETECTED; INFLUENZA B - RESP PCR PANEL NOT DETECTED; M. PNEUMONIAE- RESP PCR PANEL NOT DETECTED; PARAINFLUENZA VIRUS 1 NOT DETECTED; PARAINFLUENZA VIRUS 2 NOT DETECTED; PARAINFLUENZA VIRUS 3 NOT DETECTED; PARAINFLUENZA VIRUS 4 NOT DETECTED; RHINOVIRUS/ENTEROVIRUS NOT DETECTED; RSV- RESP PCR PANEL NOT DETECTED; SARS-CoV-2 -RESP PCR PANEL NOT DETECTED
[2021-08-19 04:19] LABS: BASOPHILS % (AUTO) 0.3 %; EOSINOPHILS # (AUTO) 0.1 10^3/uL (0.0-0.7); EOSINOPHILS % (AUTO) 0.5 %; HCT - HEMATOCRIT 26.4 % (37.0-47.0); HGB - HEMOGLOBIN 8.1 g/dL (12.0-16.0); LYMPHOCYTES % (AUTO) 11.1 %; MEAN CORPUSCULAR HEMOGLOBIN 26.6 pg (27.0-31.0); MEAN CORPUSCULAR HGB CONC 30.7 g/dL (32.0-36.0); MEAN CORPUSCULAR VOLUME 86.6 fL (81.0-99.0); MEAN PLATELET VOLUME 9.5 fL (7.9-10.8); MONOCYTES # (AUTO) 0.7 10^3/uL (0.0-1.0); MONOCYTES % (AUTO) 7.2 %; NEUTROPHILS # (AUTO) 7.5 10^3/uL (1.5-6.6); NEUTROPHILS % (AUTO) 80.6 %; PLT - PLATELET COUNT 321 10^3/uL (130-450); RED BLOOD COUNT 3.05 10^6/uL (4.20-5.40); RED CELL DISTRIBUTION WIDTH 17.8 % (12.0-15.0); WHITE BLOOD COUNT 9.3 x10^3/uL (4.8-10.8)
[2021-08-19 04:38] LABS: ALBUMIN 3.6 g/dL (3.2-5.5); ALBUMIN/GLOBULIN RATIO 1.6 (1.0-2.2); BILIRUBIN,TOTAL 0.7 mg/dL (0.2-1.0); CALCIUM 8.7 mg/dL (8.5-10.3); CREATININE 0.8 mg/dL (0.4-1.0); POTASSIUM 3.9 mmol/L (3.5-5.0); TOTAL PROTEIN 5.8 g/dL (6.7-8.2)
[2021-08-19] MEDS ORDERED: ONDANSETRON ODT 4 MG TABLET TL PRN (05:17)
[2021-08-19] MEDS ORDERED: SODIUM CHLORIDE FLUSH 0.9% 10 ML SYRINGE IVP PRN (05:17)
[2021-08-19] MEDS ORDERED: ONDANSETRON 4 MG/2 ML VIAL IVP PRN (05:17)
[2021-08-19] MEDS ORDERED: ACETAMINOPHEN 325 MG TABLET PO PRN (05:17)
[2021-08-19 05:47] LABS: % IRON SATURATION 8 % (20-50); IRON 26 ug/dL (28-170); TOTAL IRON BINDING CAPACITY 333 ug/dL (250-450); TRANSFERRIN 238 mg/dL (192-382)
[2021-08-19] MEDS ORDERED: NITROGLYCERIN SL 0.4 MG TABLET SL PRN ×2 (06:51→12:46)
--- NOTE | 2021-08-19 07:53 | XRAY Report ---
PROCEDURE: Chest 1 View X-Ray INDICATIONS: SOA TECHNIQUE: One view of the chest was acquired. COMPARISON: July 25, 2021 FINDINGS: SUPPORT DEVICES: Redemonstrated left cardiac device. LUNG/PLEURA: Prominence of the interstitium, likely reflecting pulmonary edema. Blunting of the costo phrenic sulci, compatible with pleural effusion/atelectasis. MEDIASTINUM: Prominence of the cardiac silhouette, partially related to technique. Redemonstrated sheila ral annulus calcification. Calcified atheromatous changes of the aorta. BONES/SOFT TISSUES: No acute abnormality. Moderate to advanced degenerative changes of the left gleno humeral articulation. IMPRESSION: 1.Pulmonary edema with small bilateral pleural effusions/atelectasis. Concordant interpretation with the pulmonary report. Reviewed by: Hakeem Christianson MD on 08/19/2021 7:51 AM PDT Approved by: Hakeem Christianson MD on 08/19/2021 7:51 AM PDT Station ID: [id number]
[2021-08-19] MEDS: SODIUM CHLORIDE FLUSH 0.9% 10 ML SYRINGE IVP SCH ×3 (08:57→23:34)
[2021-08-19] MEDS: FUROSEMIDE 40 MG/4 ML VIAL IVP SCH (08:57)
[2021-08-19] MEDS: ENOXAPARIN 40 MG/0.4 ML SYRINGE SUBQ SCH (08:57)
--- NOTE | 2021-08-19 11:27 | PHARMACY PROGRESS NOTE ---
- Best Possible Medication History Admit Date and Time: 08/19/21 0517 Processed by: Pharmacy Medication History completed: Yes Patient Interview: Pt unable to participate Secondary Source(s): Pharmacy records, Insurance records As the person ultimately responsible for medication therapy, providers are able to order a medication from an existing home medication list in [facility] via the "Reconcile Routine" prior to Confirmation of that medication by ict support technicians. Such practice is discouraged except when the physician, in their clinical judgment, deems that a medical need exists for a medication without regard to previous use.
[2021-08-19] MEDS ORDERED: amLODIPine 5 MG TABLET PO SCH (13:00)
[2021-08-19] MEDS: LEVOTHYROXINE 100 MCG TABLET PO SCH (13:06)
[2021-08-19] MEDS: ASPIRIN CHEW 81 MG TABLET PO SCH (13:06)
[2021-08-19] MEDS: ISOSORBIDE MONONITRATE ER 30 MG TABLET PO SCH (13:06)
--- NOTE | 2021-08-19 13:33 | HISTORY & PHYSICAL EXAMINATION ---
Chief Complaint - Chief Complaint Chief Complaint: Shortness of breath History of Present Illness - Admitted From Admitted From:: Emergency Department - History Obtained From Records Reviewed: [facility] History obtained from: Patient, Daughter, - History of Present Illness HPI Comment/Other: This pt is an 89yo Female with an extensive past medical hx of CHF/MR ,pacer, HTN, and DM that presented to the ER with acute SOB since yesterday evening. She is DNR/DNI. She is Covid negative. She was seen for a similiar episode 1 week ago for which she was hospitalized at [facility]. She was transported to our ER by EMS for her SOB after she had already taken SL nitro and lasix for which her daughter(ICU nurse [facility]) recommended. In the ED she was put on bipap. After she was stabilized with nitro and diuretics she was transitioned to 2L NC . Her troponin in ED was 397 and her BNP is 3338. Upon admission it was originally communicated by the daughter that she wanted to transfer her mom to [facility] where a bed was available. A discussion of having a mitral clip placed was explored in her medical records, but seemed to indicate that she did not want to get a mitral clip to relieve her MR. After talking with [facility] which was boarding 60 pts in the ER, it was confirmed that she was eligible for a bed, but not at the top of that list. Subsequently, the daughter was contacted and it was indicated that she was to see joint cutter bud Spence to have the procedure, but it had been delayed due to the patients desire to move to [place] which is happening this weekend during this event. Corner Cutter Machine Operator Dr. Spence was reached and he confirmed that this patient was to have a mitral clip placed. Plan was discussed with Dr. Mcgarry and Daughter. The patient is currently comfortable sitting in chair at bedside. It was also discovered that she has a broken arm for which she had surgery and it was successful. She is a fairly reliable historian. Her current PCP [place] is Dr. Read. She can answer questions appropriately and is quite knowledgeable about her condition. She states her usual baseline status is Dyspnea on exertion when walking more than just around the house. She does not have nocturnal dyspnea at baseline.She is not reporting any chest pain currently or any pain anywhere else for that matter. She is set on having the Mitral clip placed. The current plan was discussed with her and she was agreeable. Her vitals are currently stable. Hr74, BP 120/46, 20RR, 97% on RA. History - Past Medical History Cardiovascular: reports: Hypertension, [place] (Pt says the reason she was admitted to [facility] last week was for a prior [place]. Still have not confirmed this.), Valve disorder (Hx of mitral regurgitation.) Respiratory: reports: None Endocrine/Autoimmune: reports: Type 2 diabetes (According to EMR she has hx of DM. Patient denies this.), HyPOthyroidism GI: reports: None, Cholelithiasis : reports: None HEENT: reports: None, Other (Cataracts ) Psych: reports: None Musculoskeletal: reports: None, Osteoarthritis, Osteoporosis Derm: reports: None MRSA Hx?: No - Past Surgical History General: reports: Cholecystectomy Ortho: reports: Knee replacement Cardiovascular: reports: Pacemaker HEENT: reports: Cataracts (12/15/12) - Family & Social History Family History: Mother: , Father: Family History Comment/Other: She isn't 100% sure of her family past medical hx. Living arrangement: At home Living Situation: With spouse/s.o. (. Live on [place]. Moving to [place].) Social History Notes: Has 2 daughters and a son. 1 daughter who is largely her main point of contact is an CONSULTING SOFTWARE ENGINEER at [employer]. - Substance History Use: Uses substance without health or social issues: NONE, Alcohol - POLST Patient has POLST: Yes POLST Status: DNR (DNI) Meds/Allgy - Home Medications Home Medications: Ambulatory Orders Medication Instructions Recorded Confirmed Calcium [Calcio [place]] 500 mg PO DAILY 07/30/13 08/19/21 Levothyroxine [Synthroid] 100 mcg PO QDAC 07/30/13 08/19/21 Aspirin [Elizabeth Chew[place]] 81 mg PO DAILY 02/11/15 08/19/21 C,E,Zinc,Copper 24/Om3/Lut/Dora 1 each PO DAILY 02/11/15 08/19/21 [Ocuvite Softgel] Cholecalciferol (Vitamin D3) 400 unit PO DAILY 02/11/15 08/19/21 [Vitamin D] Cinnamon Bark [Cinnamon] 1,500 mg PO DAILY 02/11/15 08/19/21 Flaxseed [Flaxseed Oil] 1,000 mg PO DAILY 02/11/15 08/19/21 Glucosamine/Methylsulfonylmeth [Sm 1 each PO DAILY 02/11/15 08/19/21 Glucosamine & MSM Tablet] Amlodipine Besylate [Norvasc] 10 mg PO DAILY 08/19/21 08/19/21 Atenolol [Tenormin] 100 mg PO DAILY 08/19/21 08/19/21 Enoxaparin [Lovenox] 40 mg SUBQ Q24H 08/19/21 08/19/21 Furosemide [Lasix] 40 mg PO DAILY 08/19/21 08/19/21 Isosorbide Mononitrate ER [Imdur] 30 mg PO DAILY 08/19/21 08/19/21 Nitroglycerin [Nitrostat] 0.4 mg SL Q5MIN PRN 08/19/21 08/19/21 - Allergies Allergies/Adverse Reactions: Allergies Allergy/AdvReac Type Severity Reaction Status Date / Time ibuprofen Allergy Intermediate Nausea Verified 07/25/21 01:48 morphine Allergy Intermediate Hives Verified 07/25/21 01:48 oxycodone HCl * Allergy Intermediate Nausea Verified 07/25/21 01:48 [From Percocet] losartan Allergy Anaphylaxis Verified 07/25/21 11:53 codeine [Codeine] AdvReac Intermediate Nausea Verified 07/25/21 01:48 Sulfa (Sulfonamide AdvReac Mild Rash Verified 07/25/21 01:48 Antibiotics) Prior Level of Functionality: Currently living at home with . She usually can complete general daily activities, but has slowly declined over the past year. This has been further complicated by a broken arm that has left her more disabled. She has a signficant amount of exertional dyspnea which does limit her activity level. Cannot walk long distances due to this. Exam - Vital Signs Vital Signs: Vital Signs x48h Temp Pulse Pulse Pulse Resp BP BP 08/19/21 07:39 36.1 C L 77 22 120/53 L 08/19/21 06:16 36.1 C L 82 22 118/62 08/19/21 05:35 69 19 115/53 L Pulse Ox 08/19/21 07:39 100 08/19/21 06:16 100 08/19/21 05:35 - Physical Exam General Appearance: positive: Alert (answering questions appropriately.), Mild distress (barely speaking full sentences, but no signs of respiratory distress.) Eyes Bilateral: positive: PERRL, EOMI Neck: positive: No JVD, Trachea midline. negative: Lymphadenopathy (R), Lymphadenopathy (L) Respiratory: positive: Chest non-tender, No respiratory distress, Rales (Possible mild crackles heard on auscultation.), Other. negative: Wheezes, Rhonchi Cardiovascular: positive: Regular rate & rhythm, Systolic murmur (Blowing holosystolic murmur that radiated to that axilla) Peripheral Pulses: positive: 1+ Abdomen: positive: Non-tender, Nml bowel sounds Skin: positive: No rash, Warm, Dry Extremities: positive: Full ROM, Pedal edema (1+), Other (No sign of diabetic foot ulcers.). negative: Calf tenderness Neurologic/Psychiatric: positive: Oriented x3, CN's nml (2-12), Motor nml, Sensation nml Conclusion/Plan - Problem List (1) Acute exacerbation of CHF (congestive heart failure) Conclusion/Plan: This patient is suffering from an acute exacerbation secondary to mitral regurgitation. It is possible this was due to an [place] that she states she suffered last week, but this has not been confirmed or mentioned by her joint cutter. It was thought that was for flash pulmonary edema due to her HF. Pneumonia, PE, pneumothorax or other etiologies of this condition were considered. it is unlikely given her cardiac hx, clinical presentation, BNP of 3338, trop 397, Mitral regurgitation, and the relief of her current symptoms with lasix and nitro. She appears to primarily be exhibiting signs of left sided heart failure with the dyspnea being her primary issue which makes sense in relation to her mitral regurgitation. She does have some pedal edema, but no RUQ discomfort or JVD. Her current saturation is 97% on RA and does not appear to currently be in respiratory distress. Her lung sounds show minor crackles in the lower lobes, but nothing overtly obvious. She states she is feeling better. She is not having any chest pain at this time. Currently after discussion with her with her joint cutter Dr. Mcgarry it was decided that she should continue to receive diuretics and nitro to treat her c ondition. After discharge she will have follow up appoint with joint cutter and have a mitral clip placed as soon as this Sunday. Will continue to monitor this condition and continue with this treatment plan. (2) Flash pulmonary edema Conclusion/Plan: The episode of flash pulmonary edema that she presented with in ED due to her HF has stabilized upon admission. She is saturating at 97% on room air and has only mild crackles upon auscultation. She can converse and can make it through a full sentence without taking a breath. However, she is still has some dyspnea. Furthermore she still has a significant level dyspnea upon exertion as well. Will continue to treat her CHF/MR and monitor her oxygenation status. She will need to be reevaluated and road tested prior discharge. I suspect that her symptoms will continue to improve. (3) Fracture of distal humerus Conclusion/Plan: Left arm is currently immobilized in splint and sling. Circulation, motor, and sensation are intact. She does not complain of any pain at this time. No further treatment indicated at this time. Qualifiers: Encounter type: initial encounter Fracture type: closed Fracture morphology: other fracture Fracture alignment: displaced Laterality: left Qualified Code(s): S42.492A - Other displaced fracture of lower end of left humerus, initial encounter for closed fracture - Lab Results Fish Bones: 08/19/21 04:00 08/19/21 04:00 Other Lab Results: WBC 9.3 x10^3/uL (4.8-10.8) 08/19/21 04:00 RBC 3.05 10^6/uL (4.20-5.40) L 08/19/21 04:00 Hgb 8.1 g/dL (12.0-16.0) L 08/19/21 04:00 Hct 26.4 % (37.0-47.0) L 08/19/21 04:00 MCV 86.6 fL (81.0-99.0) 08/19/21 04:00 MCH 26.6 pg (27.0-31.0) L 08/19/21 04:00 MCHC 30.7 g/dL (32.0-36.0) L 08/19/21 04:00 RDW 17.8 % (12.0-15.0) H 08/19/21 04:00 Plt Count 321 10^3/uL (130-450) 08/19/21 04:00 MPV 9.5 fL (7.9-10.8) 08/19/21 04:00 Neut # (Auto) 7.5 10^3/uL (1.5-6.6) H 08/19/21 04:00 Lymph # (Auto) 1.0 10^3/uL (1.5-3.5) L 08/19/21 04:00 Wy[place] # (Auto) 0.7 10^3/uL (0.0-1.0) 08/19/21 04:00 Eos # (Auto) 0.1 10^3/uL (0.0-0.7) 08/19/21 04:00 Baso # (Auto) 0.0 10^3/uL (0.0-0.1) 08/19/21 04:00 Absolute Nucleated RBC 0.00 x10^3/uL 08/19/21 04:00 Nucleated RBC % 0.0 /100WBC 08/19/21 04:00 Sodium 133 mmol/L (135-145) L 08/19/21 04:00 Potassium 3.9 mmol/L (3.5-5.0) 08/19/21 04:00 Chloride 99 mmol/L (101-111) L 08/19/21 04:00 Carbon Dioxide 22 mmol/L (21-32) 08/19/21 04:00 Anion Gap 12.0 (6-13) 08/19/21 04:00 BUN 13 mg/dL (6-20) 08/19/21 04:00 Creatinine 0.8 mg/dL (0.4-1.0) 08/19/21 04:00 Estimated GFR (MDRD) 68 (>89) L 08/19/21 04:00 Glucose 137 mg/dL (70-100) H 08/19/21 04:00 Calcium 8.7 mg/dL (8.5-10.3) 08/19/21 04:00 Iron 26 ug/dL (28-170) L 08/19/21 04:00 TIBC 333 ug/dL (250-450) 08/19/21 04:00 % Saturation 8 % (20-50) L 08/19/21 04:00 Transferrin 238 mg/dL (192-382) 08/19/21 04:00 Ferritin 117.0 ng/mL (11.0-306.8) 08/19/21 04:00 Total Bilirubin 0.7 mg/dL (0.2-1.0) 08/19/21 04:00 AST 26 IU/L (10-42) 08/19/21 04:00 ALT 27 IU/L (10-60) 08/19/21 04:00 Alkaline Phosphatase 66 IU/L (42-121) 08/19/21 04:00 Troponin I High Sens 397.2 ng/L (2.3-14.8) H* 08/19/21 04:00 B-Natriuretic Peptide 3338 pg/mL (5-100) H 08/19/21 04:00 Total Protein 5.8 g/dL (6.7-8.2) L 08/19/21 04:00 Albumin 3.6 g/dL (3.2-5.5) 08/19/21 04:00 Globulin 2.2 g/dL (2.1-4.2) 08/19/21 04:00 Albumin/Globulin Ratio 1.6 (1.0-2.2) 08/19/21 04:00 Lipase 29 U/L (22-51) 08/19/21 04:00 Nasal Adenovirus (PCR) NOT DETECTED 08/19/21 03:04 Nasal B. parapertussis DNA (PCR) NOT DETECTED 08/19/21 03:04 Nasal Coronavir 229E PCR NOT DETECTED 08/19/21 03:04 Nasal Coronavir HKU1 PCR NOT DETECTED 08/19/21 03:04 Nasal Coronavir NL63 PCR NOT DETECTED 08/19/21 03:04 Nasal Coronavir OC43 PCR NOT DETECTED 08/19/21 03:04 Nasal Enterovir/Rhinovir PCR NOT DETECTED 08/19/21 03:04 Nasal Influenza B PCR NOT DETECTED 08/19/21 03:04 Nasal Influenza A PCR NOT DETECTED 08/19/21 03:04 Nasal Parainfluen 1 PCR NOT DETECTED 08/19/21 03:04 Nasal Parainfluen 2 PCR NOT DETECTED 08/19/21 03:04 Nasal Parainfluen 3 PCR NOT DETECTED 08/19/21 03:04 Nasal Parainfluen 4 PCR NOT DETECTED 08/19/21 03:04 Nasal RSV (PCR) NOT DETECTED 08/19/21 03:04 Nasal B.pertussis DNA PCR NOT DETECTED 08/19/21 03:04 Nasal C.pneumoniae (PCR) NOT DETECTED 08/19/21 03:04 Ben Human Metapneumo PCR NOT DETECTED 08/19/21 03:04 Nasal M.pneumoniae (PCR) NOT DETECTED 08/19/21 03:04 Nasal SARS-CoV-2 (PCR) NOT DETECTED 08/19/21 03:04
[2021-08-20] MEDS: LEVOTHYROXINE 100 MCG TABLET PO SCH (06:22)
[2021-08-20 07:31] LABS: BASOPHILS % (AUTO) 0.6 %; EOSINOPHILS # (AUTO) 0.2 10^3/uL (0.0-0.7); EOSINOPHILS % (AUTO) 3.4 %; HCT - HEMATOCRIT 28.4 % (37.0-47.0); HGB - HEMOGLOBIN 8.8 g/dL (12.0-16.0); LYMPHOCYTES # (AUTO) 1.3 10^3/uL (1.5-3.5); LYMPHOCYTES % (AUTO) 19.5 %; MEAN CORPUSCULAR HEMOGLOBIN 26.4 pg (27.0-31.0); MEAN CORPUSCULAR VOLUME 85.3 fL (81.0-99.0); MEAN PLATELET VOLUME 9.1 fL (7.9-10.8); MONOCYTES # (AUTO) 0.6 10^3/uL (0.0-1.0); MONOCYTES % (AUTO) 9.3 %; NEUTROPHILS # (AUTO) 4.5 10^3/uL (1.5-6.6); NEUTROPHILS % (AUTO) 66.9 %; PLT - PLATELET COUNT 285 10^3/uL (130-450); RED BLOOD COUNT 3.33 10^6/uL (4.20-5.40); RED CELL DISTRIBUTION WIDTH 17.8 % (12.0-15.0); WHITE BLOOD COUNT 6.8 x10^3/uL (4.8-10.8)
[2021-08-20 07:40] LABS: CALCIUM 8.8 mg/dL (8.5-10.3); CREATININE 0.6 mg/dL (0.4-1.0); POTASSIUM 3.5 mmol/L (3.5-5.0)
[2021-08-20] MEDS: ASPIRIN CHEW 81 MG TABLET PO SCH (09:20)
[2021-08-20] MEDS: FUROSEMIDE 40 MG/4 ML VIAL IVP SCH (09:20)
[2021-08-20] MEDS: ENOXAPARIN 40 MG/0.4 ML SYRINGE SUBQ SCH (09:21)
[2021-08-20] MEDS: SODIUM CHLORIDE FLUSH 0.9% 10 ML SYRINGE IVP SCH ×2 (09:22→22:10)
[2021-08-20] MEDS: ISOSORBIDE MONONITRATE ER 30 MG TABLET PO SCH (09:31)
[2021-08-20] MEDS: amLODIPine 5 MG TABLET PO SCH (09:31)
--- NOTE | 2021-08-20 11:50 | PROVIDER PROGRESS NOTE ---
Subjective - Prog Note Date Prog Note Date: 08/20/21 Prog Note Time: 11:43 - Subjective Pt reports feeling: No change Subjective: she feels as if she has continued giordano with easy activity. eating and talking make her sob. Mild orthopnea. No leg edema. She really can't say if this is baseline for her now or if she is worse than usual. Current Medications - Current Medications Current Medications: Active Medications Acetaminophen (Acetaminophen 325 Mg Tablet) 650 mg PO Q4HR PRN PRN Reason: Pain 1 to 4 Amlodipine Besylate (Amlodipine 5 Mg Tablet) 10 mg PO DAILY [facility] Last Admin: 08/20/21 09:31 Dose: 10 mg Documented by: Aspirin (Aspirin Chew 81 Mg Tablet) 81 mg PO DAILY [facility] Last Admin: 08/20/21 09:20 Dose: 81 mg Documented by: Enoxaparin Sodium (Enoxaparin 40 Mg/0.4 Ml Syringe) 40 mg SUBQ DAILY [facility] Last Admin: 08/20/21 09:21 Dose: 40 mg Documented by: Furosemide (Furosemide 40 Mg/4 Ml Vial) 40 mg IVP DAILY [facility] Last Admin: 08/20/21 09:20 Dose: 40 mg Documented by: Isosorbide Mononitrate (Isosorbide Mononitrate Er 30 Mg Tablet) 30 mg PO DAILY [facility] Last Admin: 08/20/21 09:31 Dose: 30 mg Documented by: Levothyroxine Sodium (Levothyroxine 100 Mcg Tablet) 100 mcg PO QDAC [facility] Last Admin: 08/20/21 06:22 Dose: 100 mcg Documented by: Nitroglycerin (Nitroglycerin Sl 0.4 Mg Tablet) 0.4 mg SL Q5MIN PRN PRN Reason: Chest Pain Last Admin: 08/19/21 12:34 Dose: 0.4 mg Documented by: Ondansetron HCl (Ondansetron Odt 4 Mg Tablet) 4 mg TL Q6HR PRN PRN Reason: Nausea / Vomiting Ondansetron HCl (Ondansetron 4 Mg/2 Ml Vial) 4 mg IVP Q6HR PRN PRN Reason: Nausea / Vomiting Sodium Chloride (Sodium Chloride Flush 0.9% 10 Ml Syringe) 10 ml IVP PRN PRN PRN Reason: NEEDED PER PROVIDER ORDERS Sodium Chloride (Sodium Chloride Flush 0.9% 10 Ml Syringe) 10 ml IVP 0100,0900,1700 K[facility] Last Admin: 08/20/21 09:22 Dose: 10 ml Documented by: Calcium [Calcio [place]] 500 mg PO DAILY 07/30/13 Levothyroxine [Synthroid] 100 mcg PO QDAC 07/30/13 Aspirin [Elizabeth Chewable] 81 mg PO DAILY 02/11/15 C,E,Zinc,Copper 24/Om3/Lut/Dora [Ocuvite Softgel] 1 each PO DAILY 02/11/15 Cholecalciferol (Vitamin D3) [Vitamin D] 400 unit PO DAILY 02/11/15 Cinnamon Bark [Cinnamon] 1,500 mg PO DAILY 02/11/15 Flaxseed [Flaxseed Oil] 1,000 mg PO DAILY 02/11/15 Glucosamine/Methylsulfonylmeth [Sm Glucosamine & MSM Tablet] 1 each PO DAILY 02/11/15 Amlodipine Besylate [Norvasc] 10 mg PO DAILY 08/19/21 Atenolol [Tenormin] 100 mg PO DAILY 08/19/21 Enoxaparin [Lovenox] 40 mg SUBQ Q24H 08/19/21 Furosemide [Lasix] 40 mg PO DAILY 08/19/21 Isosorbide Mononitrate ER [Imdur] 30 mg PO DAILY 08/19/21 Nitroglycerin [Nitrostat] 0.4 mg SL Q5MIN PRN 08/19/21 Objective - Vital Signs/Intake & Output Reviewed Vital Signs: Yes Vital Signs: Vital Signs x48h Temp Pulse Resp BP Pulse Ox 08/20/21 11:18 36.1 C L 78 20 120/47 L 98 08/20/21 07:50 36.4 C L 87 18 128/53 L 96 08/20/21 05:00 36.2 C L 90 20 130/60 98 Intake & Output: Intake & Output 08/17/21 08/18/21 08/19/21 08/20/21 23:59 23:59 23:59 23:59 Intake Total 980 500 Balance 980 500 - Objective General Appearance: positive: Alert, Mild distress (sitting up in bed and increases her resp alice when speaking to me but able to complete sentences) Eyes Bilateral: positive: PERRL, EOMI ENT: positive: No signs of dehydration Neck: positive: No JVD. negative: Stiff neck Respiratory: positive: Other (mild resp distress). negative: Wheezes, Rales, Rhonchi Cardiovascular: positive: Regular rate & rhythm, Systolic murmur (loudest at axilla). negative: Gallop/S4, Friction rub Abdomen: positive: Non-tender, No organomegaly, Nml bowel sounds, No distention Skin: positive: Warm, Dry Extremities: positive: Full ROM, No pedal edema, Other (left arm in shoulder to forearm cast. fingers on that hand sausages but not tight and can flex write and fingers.) Neurologic/Psychiatric: positive: Oriented x3, CN's nml (2-12), Motor nml - Lab Results Fish Bones: 08/20/21 07:25 08/20/21 07:25 Other Labs: Lab Results x24hrs 08/20/21 08/20/21 Range/Units 07:25 07:25 WBC 6.8 (4.8-10.8) x10^3/uL RBC 3.33 L (4.20-5.40) 10^6/uL Hgb 8.8 L (12.0-16.0) g/dL Hct 28.4 L (37.0-47.0) % MCV 85.3 (81.0-99.0) fL MCH 26.4 L (27.0-31.0) pg MCHC 31.0 L (32.0-36.0) g/dL RDW 17.8 H (12.0-15.0) % Plt Count 285 (130-450) 10^3/uL MPV 9.1 (7.9-10.8) fL Neut # (Auto) 4.5 (1.5-6.6) 10^3/uL Lymph # (Auto) 1.3 L (1.5-3.5) 10^3/uL [place] # (Auto) 0.6 (0.0-1.0) 10^3/uL Eos # (Auto) 0.2 (0.0-0.7) 10^3/uL Baso # (Auto) 0.0 (0.0-0.1) 10^3/uL Absolute Nucleated RBC 0.00 x10^3/uL Nucleated RBC % 0.0 /100WBC Sodium 132 L (135-145) mmol/L Potassium 3.5 (3.5-5.0) mmol/L Chloride 97 L (101-111) mmol/L Carbon Dioxide 24 (21-32) mmol/L Anion Gap 11.0 (6-13) BUN 11 (6-20) mg/dL Creatinine 0.6 (0.4-1.0) mg/dL Estimated GFR (MDRD) 94 (>89) Glucose 121 H (70-100) mg/dL Calcium 8.8 (8.5-10.3) mg/dL Magnesium 2.0 (1.7-2.8) mg/dL Assessment/Plan - Problem List (1) Normocytic anemia due to blood loss Impression: she's had recent arm surgery and isn't eating well. Check iron studies and start iron and vitamin C. Check FOBT. (2) Acute exacerbation of CHF (congestive heart failure) Impression: This patient is suffering from an acute exacerbation secondary to mitral regurgitation. It is possible this was due to an VA that she states she suffered last week, but this has not been confirmed or mentioned by her archeologist classical. She has flash pulmonary edema due to MV regurg and CHF with that admission according to Dr. Mcgarry. In describing this admission Dr. Mcgarry feels it is the same presentation. Dr. Mcgarry advised that she should continue to receive diuretics and nitro to treat her condition. Pneumonia, PE, pneumothorax or other etiologies of this condition were considered. it is unlikely those are the cause, given her cardiac hx, clinical presentation, BNP of 3338, trop 397, hx of mitral regurgitation, and the relief of her current symptoms with lasix and nitro. She appears to primarily be exhibiting signs of left sided heart failure with the dyspnea being her primary issue which makes sense in relation to her mitral regurgitation. She did have some pedal edema, but no RUQ discomfort or JVD. Her saturation was 97% on RA and was not in respiratory distress. Her lung sounds had minor crackles in the lower lobes, but nothing overtly obvious. She continues to have baseline giordano as manifested by increased respiratory rate when she speaks or eats but she really can't tell me if that is baseline. She thinks she is "fine" for her problems right now. She is not having any chest pain at this time. No recorded output by RN or aides so not able to assess I/O Have asked RN to please start recording. Continue w Lasix IV today. (2) Flash pulmonary edema Conclusion/Plan: The episode of flash pulmonary edema that she presented with in ED due to her HF has stabilized upon admission. She is saturating at 97% on room air and has only mild crackles upon auscultation. She can converse and can make it through a full sentence without taking a breath. However, she is still has some dyspnea. Furthermore she still has a significant level dyspnea upon exertion as well. Will continue to treat her CHF/MR and monitor her oxygenation status. She will need to be reevaluated and road tested prior discharge. I suspect that her symptoms will continue to improve. (3) Fracture of distal humerus Conclusion/Plan: Left arm is currently immobilized in splint and sling. Circulation, motor, and sensation are intact. She does not complain of any pain at this time. No further treatment indicated at this time. Qualifiers: Encounter type: initial encounter Fracture type: closed Fracture morphology: other fracture Fracture alignment: displaced Laterality: left Qualified Code(s): S42.492A - Other displaced fracture of lower end of left humerus, initial encounter for closed fracture
[2021-08-20] MEDS ORDERED: ASCORBIC ACID 500 MG TABLET PO SCH (13:00)
[2021-08-20] MEDS: ASCORBIC ACID 500 MG TABLET PO SCH (14:48)
[2021-08-20] MEDS: FERROUS GLUCONATE 324 MG TABLET PO SCH (14:48)
[2021-08-20 20:23] LABS: FECAL OCCULT BLOOD (FIT) NEGATIVE (NEGATIVE)
[2021-08-21] MEDS: SODIUM CHLORIDE FLUSH 0.9% 10 ML SYRINGE IVP SCH ×2 (00:32→10:19)
[2021-08-21] MEDS: LEVOTHYROXINE 100 MCG TABLET PO SCH (06:08)
[2021-08-21 07:21] LABS: BASOPHILS % (AUTO) 0.6 %; EOSINOPHILS # (AUTO) 0.3 10^3/uL (0.0-0.7); EOSINOPHILS % (AUTO) 4.8 %; HCT - HEMATOCRIT 31.1 % (37.0-47.0); HGB - HEMOGLOBIN 9.4 g/dL (12.0-16.0); LYMPHOCYTES # (AUTO) 1.7 10^3/uL (1.5-3.5); LYMPHOCYTES % (AUTO) 27.8 %; MEAN CORPUSCULAR HGB CONC 30.2 g/dL (32.0-36.0); MEAN CORPUSCULAR VOLUME 86.1 fL (81.0-99.0); MEAN PLATELET VOLUME 9.8 fL (7.9-10.8); MONOCYTES # (AUTO) 0.6 10^3/uL (0.0-1.0); MONOCYTES % (AUTO) 8.8 %; NEUTROPHILS # (AUTO) 3.6 10^3/uL (1.5-6.6); NEUTROPHILS % (AUTO) 57.5 %; PLT - PLATELET COUNT 295 10^3/uL (130-450); RED BLOOD COUNT 3.61 10^6/uL (4.20-5.40); RED CELL DISTRIBUTION WIDTH 17.7 % (12.0-15.0); WHITE BLOOD COUNT 6.3 x10^3/uL (4.8-10.8)
[2021-08-21 07:25] LABS: MAGNESIUM 2.1 mg/dL (1.7-2.8)
[2021-08-21 07:32] LABS: % IRON SATURATION 9 % (20-50); IRON 29 ug/dL (28-170); TOTAL IRON BINDING CAPACITY 319 ug/dL (250-450); TRANSFERRIN 228 mg/dL (192-382)
[2021-08-21 07:44] LABS: CALCIUM 8.9 mg/dL (8.5-10.3); CREATININE 0.6 mg/dL (0.4-1.0); POTASSIUM 3.4 mmol/L (3.5-5.0)
--- NOTE | 2021-08-21 09:02 | Discharge Plan ---
Discharge Plan Problem Reviewed?: Yes Disposition: Home Health Service Condition: Stable Prescriptions: Ferrous Gluconate [Fergon] 324 mg PO DAILYWM #30 tablet Diet: Cardiac Activity Restrictions: Activity as Tolerated Shower Restrictions: Yes (per ortho instructions for left arm) Driving Restrictions: Yes (no driving) Instruction Topics: Heart Failure, ED CHF General Health Concerns: You presented to the hospital with another episode of severe shortness of breath. You have known mitral valve regurgitation that is quite severe and are scheduled to have a mitral valve clip in the near future. You had just been discharged from [facility] for flash pulmonary edema which is acute congestive heart failure due to your mitral valve dysfunction. I spoke to the telecommunication systems designer who took care of you there and she recommended we would diurese you, continue the same medications. You were concerned about your left arm. You want the stitches taken out and you want an x-ray before you leave. Plan of Treatment: 1. Continue to take your Lasix at an increased dose. Please see your c ardiologist as soon as possible 2. I have removed the stitches today right before discharge at your request. You are due to see Dr. Joseph uYsuf tomorrow. 3. X-rays were taken of your left upper arm and elbow at your request to help you with your orthopedic follow-up surgery. Care Goals: To have your mitral valve repaired. To not be in congestive heart failure all the time. And to have use of your left arm again. Assessment: Patient has her own establish care goals that she will follow through on. Daughter, Caity, will help her follow through. No Smoking: If you smoke, Please STOP! Call for help. Follow-up with: BRYSON CESPEDES PA [Primary Care Provider] - Joseph Yusuf MD [Physician No Access] -
--- NOTE | 2021-08-21 09:03 | DISCHARGE SUMMARY ---
"Discharge Summary Admit Date: 08/19/21 Discharge Date: 08/21/21 Discharging Provider: Skyla Coppola MD Primary Care Provider: Raudel Read MD Code Status: Do Not Attempt Resuscitation Condition at Discharge: Stable Discharge Disposition: Home Health Service - DIAGNOSES Discharge Diagnoses with Status of Each Condition: 1 acute on chronic systolic heart failure 2. Flash pulmonary edema 3. Fracture of distal humerus 4. Mitral regurgitation, severe 5. Hypokalemia 6. Acute blood loss anemia 7. Hyponatremia - HPI History of Present Illness: This pt is an 89yo Female with an extensive past medical hx of CHF/MR ,pacer, HTN, and DM that presented to the ER with acute SOB since yesterday evening. She is DNR/DNI. She is Covid negative. She was seen for a similiar episode 1 week ago for which she was hospitalized at [facility]. She was transported to our ER by EMS for her SOB after she had already taken SL nitro and lasix for which her daughter(ICU nurse [facility]) recommended. In the ED she was put on bipap. After she was stabilized with nitro and diuretics she was transitioned to 2L NC . Her troponin in ED was 397 and her BNP is 3338. Upon admission it was originally communicated by the daughter that she wanted to transfer her mom to [facility] where a bed was available. A discussion of having a mitral clip placed was explored in her medical records, but seemed to indicate that she did not want to get a mitral clip to relieve her MR. After talking with [facility] which was boarding 60 pts in the ER, it was confirmed that she was eligible for a bed, but not at the top of that list. Subsequently, the daughter was contacted and it was indicated that she was to see beam racker named Dr. Spence to have the procedure, but it had been delayed due to the patients desire to move to [place] which is happening this weekend during this event. Rides Supervisor Dr. Spence was reached and he confirmed that this patient was to have a mitral clip placed. Plan was discussed with Dr. Mcgarry and Daughter. The patient is currently comfortable sitting in chair at bedside. It was also discovered that she has a broken arm for which she had surgery and it was successful. She is a fairly reliable historian. Her current PCP on [place] is Dr. Read. She can answer questions appropriately and is quite knowledgeable about her condition. She states her usual baseline status is Dyspnea on exertion when walking more than just around the house. She does not have nocturnal dyspnea at baseline.She is not reporting any chest pain currently or any pain anywhere else for that matter. She is set on having the Mitral clip placed. The current plan was discussed with her and she was agreeable. Her vitals are currently stable. Hr74, BP 120/46, 20RR, 97% on RA. - Past Medical History Cardiovascular: reports: Hypertension, MT (Pt says the reason she was admitted to [facility] last week was for a prior MT. Still have not confirmed this.), Valve disorder (Hx of mitral regurgitation.) Respiratory: reports: None Endocrine/Autoimmune: reports: Type 2 diabetes (According to EMR she has hx of DM. Patient denies this.), HyPOthyroidism GI: reports: None, Cholelithiasis : reports: None HEENT: reports: None, Other (Cataracts ) Psych: reports: None Musculoskeletal: reports: None, Osteoarthritis, Osteoporosis Derm: reports: None MRSA Hx?: No - Past Surgical History General: reports: Cholecystectomy Ortho: reports: Knee replacement Cardiovascular: reports: Pacemaker HEENT: reports: Cataracts (12/15/12) - CONSULTS | PROCEDURES Procedures: Chest x-ray with both pulmonary edema and small bilateral pleural effusions/atelectasis. Iron studies showed an iron of 26, TIBC 333, percent saturation 8%. Transferrin 238. Ferritin 117. - HOSPITAL COURSE Hospital Course: We spoke to her beam racker that took care of her while she was at [facility]. That beam racker described flash pulmonary edema due to her mitral regurgitation. In describing the current admission to her, she says that this is an echo of the admission at [facility]. The patient is a candidate for mitral valve clip and the patient does want a mitral valve clip. We needed to clarify that because there was conflicting data in the medical record. She was diuresed adequately. When she was admitted she had tachypnea and increased respiratory effort with just speaking full sentences. By the time of discharge she was conversing normally without increased respiratory effort. She is due to see her orthopedic surgeon tomorrow. And she is due to see cardiology in the next 1 to 2 weeks. Before she left she really wanted us to remove the stitches in her left arm. And she also wanted x-rays done. This is going to expedite her visit to the orthopedic surgeon. Right now she is so limited with her congestive heart failure she wants to limit having to be transported from office to office. As such Prolene sutures removed. The wound is clean, closed. No redness, no heat, no pink. No discharge. Left elbow is slightly contracted. Films were pending at the time of discharge. Changes to her medication list is that of ferrous gluconate, vitamin C, and potassium. Those have been called into her pharmacy. She has iron deficiency anemia, most likely from acute blood loss with her arm surgery that she is slowly recovering from. She did not need transfusion while here. At discharge temperature was 36.3. Heart rate 86. Blood pressure 125/55. Respirations 16. 97% on room air. She is 5 feet 3 inches tall and weighs 63.5 kg. She is a frail elderly but alert, lucid historian. Neck has minimal JVD at 45 degrees. Lungs have diminished breath sounds at the bases and there is an occasional crackle. No use of accessory muscles. Conversation is normal. Abdomen is normal bowel sounds, nondistended, nontender. Left arm is as above. There is no pedal edema at all. Greater than 30 minutes was spent coordinating discharge. - ALLERGIES Allergies/Adverse Reactions: Allergies Allergy/AdvReac Type Severity Reaction Status Date / Time ibuprofen Allergy Intermediate Nausea Verified 07/25/21 01:48 morphine Allergy Intermediate Hives Verified 07/25/21 01:48 oxycodone HCl * Allergy Intermediate Nausea Verified 07/25/21 01:48 [From Percocet] losartan Allergy Anaphylaxis Verified 07/25/21 11:53 codeine [Codeine] AdvReac Intermediate Nausea Verified 07/25/21 01:48 Sulfa (Sulfonamide AdvReac Mild Rash Verified 07/25/21 01:48 Antibiotics) - MEDICATIONS Home Medications: Ambulatory Orders Medication Instructions Recorded Confirmed Calcium [Calcio [place]] 500 mg PO DAILY 07/30/13 08/19/21 Levothyroxine [Synthroid] 100 mcg PO QDAC 07/30/13 08/19/21 Aspirin [Elizabeth Chewable Aspirin] 81 mg PO DAILY 02/11/15 08/19/21 C,E,Zinc,Copper 24/Om3/Lut/Dora 1 each PO DAILY 02/11/15 08/19/21 [Ocuvite Adult 50 Plus Softgel] Cholecalciferol (Vitamin D3) 400 unit PO DAILY 02/11/15 08/19/21 [Vitamin D3] Cinnamon Bark [Cinnamon] 1,500 mg PO DAILY 02/11/15 08/19/21 Flaxseed [Flaxseed Oil] 1,000 mg PO DAILY 02/11/15 08/19/21 Glucosamine/Methylsulfonylmeth [Sm 1 each PO DAILY 02/11/15 08/19/21 Glucosamine & MSM Tablet] Amlodipine Besylate [Norvasc] 10 mg PO DAILY 08/19/21 08/19/21 Atenolol [Tenormin] 100 mg PO DAILY 08/19/21 08/19/21 Enoxaparin [Lovenox] 40 mg SUBQ Q24H 08/19/21 08/19/21 Furosemide [Lasix] 40 mg PO DAILY 08/19/21 08/19/21 Isosorbide Mononitrate ER [Imdur] 30 mg PO DAILY 08/19/21 08/19/21 Nitroglycerin [Nitrostat] 0.4 mg SL Q5MIN PRN 08/19/21 08/19/21 Ascorbic Acid [Vitamin C] 500 mg PO DAILYWM tablet 08/21/21 Ferrous Gluconate [Fergon] 324 mg PO DAILYWM #30 tablet 08/21/21 - LABS Result Diagrams: 08/21/21 06:28 08/21/21 06:28"
[2021-08-21] MEDS: FUROSEMIDE 40 MG/4 ML VIAL IVP SCH ×2 (10:17→10:46)
[2021-08-21] MEDS: amLODIPine 5 MG TABLET PO SCH (10:17)
[2021-08-21] MEDS: ASPIRIN CHEW 81 MG TABLET PO SCH (10:17)
[2021-08-21] MEDS: FERROUS GLUCONATE 324 MG TABLET PO SCH (10:18)
[2021-08-21] MEDS: ENOXAPARIN 40 MG/0.4 ML SYRINGE SUBQ SCH (10:18)
[2021-08-21] MEDS: ASCORBIC ACID 500 MG TABLET PO SCH (10:18)
[2021-08-21] MEDS: ISOSORBIDE MONONITRATE ER 30 MG TABLET PO SCH (10:18)
[2021-08-21 12:14] VITALS: BP 112/57
--- NOTE | 2021-08-21 12:32 | XRAY Report ---
PROCEDURE: Elbow 2 View LT INDICATIONS: fx, s/p repair TECHNIQUE: 2 views of the elbow were acquired. COMPARISON: 07/14/2020 oh FINDINGS: Bones: Patient is status post ORIF with plate and screw fixation of the previously noted comminuted d istal humeral fracture. The main fracture fragments are near-anatomic. Multiple smaller fracture frag ments remain displaced. No evidence of hardware complication. Soft tissues: Diffuse soft tissue swelling/edema is noted throughout the lower arm. IMPRESSION: Postsurgical changes of the distal humerus with plate and screw fixation without evidence of acute co mplication. Multiple smaller fracture fragments remain displaced. Reviewed by: Nino Soto DO on 08/21/2021 11:31 AM DAGOBERTO Approved by: Nino Soto DO on 08/21/2021 11:31 AM DAGOBERTO Station ID: [id number]
--- NOTE | 2021-08-21 12:34 | XRAY Report ---
PROCEDURE: Humerus LT INDICATIONS: fx w postop check TECHNIQUE: 2 views of the humerus were acquired. COMPARISON: 07/14/2021 FINDINGS: Bones: Patient is status post ORIF with plate and screw fixation of the previously noted comminuted distal humeral fracture. The main fracture fragments are near-anatomic. Multiple smaller fracture fra gments remain displaced. No evidence of hardware complication. Advanced degenerative changes of the g lenohumeral joint. Soft tissues: No suspicious soft tissue calcifications. Left chest wall cardiac device is incomplet raffi evaluated. IMPRESSION: Post surgical changes of ORIF with plate and screw fixation of the distal humerus without evidence of hardware complication. Near anatomic alignment of the main fracture fragments. Smaller fracture frag ments remain displaced. Reviewed by: Nino Soto DO on 08/21/2021 11:33 AM DAGOBERTO Approved by: Nino Soto DO on 08/21/2021 11:33 AM DAGOBERTO Station ID: [id number]
== END 2021-08-21 13:00 | disposition home or self-care (01) | DRG 291 ==
LOC: EDUNIT# → ED 02:19 → SUPCPDRO 02:19 → MS2 05:17
PROVIDERS: ADMIT Specialist; ATTEND Specialist
DX: I11.0 Hypertensive heart disease with heart failure (principal); I50.9 Heart failure, unspecified; I50.23 Acute on chronic systolic (congestive) heart failure; D62 Acute posthemorrhagic anemia; Z20.822 Contact with and (suspected) exposure to COVID-19; E87.1 Hypo-osmolality and hyponatremia; Z79.82 Long term (current) use of aspirin; I34.0 Nonrheumatic mitral (valve) insufficiency; E87.6 Hypokalemia; Z95.0 Presence of cardiac pacemaker; E03.9 Hypothyroidism, unspecified; M81.0 Age-related osteoporosis without current pathological fracture; M19.90 Unspecified osteoarthritis, unspecified site; S42.402D Unspecified fracture of lower end of left humerus, subsequent encounter for fracture with routine healing; Z66 Do not resuscitate; Z79.899 Other long term (current) drug therapy
CPT/HCPCS: 36415; 71045; 73060; 73070; 80048; 80053; 82274; 82728; 83540; 83690; 83735; 83880; 84466; 84484; 85025; 87631; 93005; 96374; 99285; A9270; J1650; 0202U